=== PATIENT | male | born 1955 | race Caucasian/White ===

== ENCOUNTER 2016-09-17 16:02 | Emergency (ER) | payer OTHER ==
[~2016-09-17] VITALS: Ht 170.2 cm; Wt 81.8 kg
[~2016-09-17 16:02] MED LIST: AMLO-511 PO; ASPI81 PO; DOCU-119 PO; HYDR-309 PO; INSLAN SQ; LISI-661 PO; OMEP10 PO; TAMS0.4C32 PO
[2016-09-17] MEDS ORDERED: INSU100I26 SQ (16:09)
[2016-09-17] MEDS ORDERED: METF500T7 PO (16:09)
[2016-09-17] MEDS ORDERED: ATOR10TA84 PO (16:09)
[2016-09-17] MEDS ORDERED: CARV6 PO (16:09)
[2016-09-17 16:11] LABS: GLUCOSE COMMENT 1 Repeated; GLUCOSE,POINT OF CARE > 600 MG/DL (70-110)
[2016-09-17 17:22] LABS: GLUCOSE,POINT OF CARE 569 MG/DL (70-110)
[2016-09-17 18:02] LABS: APPEARANCE,URINE CLEAR (CLEAR); GLUCOSE, URINE (UA) >=1000 mg/dL (NEGATIVE); KETONES,URINE NEGATIVE (NEGATIVE); LEUKOCYTE ESTERASE ,URINE NEGATIVE (NEGATIVE); OCCULT BLOOD,URINE NEGATIVE (NEGATIVE); PROTEIN,URINE NEGATIVE (NEGATIVE)
[2016-09-17 18:03] LABS: BASOPHILS % (AUTO) 0.4 % (0.0-2.0); EOSINOPHILS % (AUTO) 3.7 % (1.0-6.0); HEMATOCRIT 47.9 % (41-53); HEMOGLOBIN 15.1 g/dL (13.5-17.5); LYMPHOCYTES # (AUTO) 3.2 K/uL (1.0-4.8); LYMPHOCYTES % (AUTO) 23.5 % (22.0-44.0); MEAN CORPUSCULAR HEMOGLOBIN 20.6 pg (26.0-34.0); MEAN CORPUSCULAR HGB CONC 31.6 G/dL (31.0-37.0); MEAN CORPUSCULAR VOLUME 65 fL (80-100); MONOCYTES % (AUTO) 7.8 % (2.0-9.0); NEUTROPHILS # (AUTO) 8.7 K/uL (1.8-7.7); NEUTROPHILS % (AUTO) 64.6 % (40.0-70.0); PLATELET COUNT (AUTO) 190 K/uL (150-450); RED BLOOD CELL COUNT(AUTO) 7.34 MIL/uL (4.50-5.90); RED CELL DISTRIBUTION WIDTH 15.2 % (11.5-14.5); WHITE BLOOD COUNT (AUTO) 13.4 K/uL (4.5-11.0)
[2016-09-17 18:03] LABS: ADD UA MICROSCOPIC YES
[2016-09-17 18:10] LABS: RBC,URINE None Seen /HPF (0-2); SQUAMOUS EPITHELIAL CELL,UR Rare /LPF (None Seen); WBC,URINE 0-2 /HPF (0-5)
[2016-09-17 18:26] LABS: ALANINE AMINOTRANSFERASE 85 U/L (12-78); ALBUMIN 3.6 g/dL (3.4-5.0); ANION GAP 4 mmol/L (8-16); ASPARTATE AMINOTRANSFERASE 34 U/L (15-37); BILIRUBIN,TOTAL 0.6 mg/dL (0.1-1.0); CALCIUM, TOTAL 9.2 mg/dL (8.8-10.5); CARBON DIOXIDE 30 mmol/L (22-29); CHLORIDE 92 mmol/L (98-107); CREATINE KINASE, TOTAL 68 U/L (39-308); CREATININE 1.21 mg/dL (0.60-1.30); GLOMERULAR FILTR. RATE CALC > 60 mL/min (>60); POTASSIUM 4.8 mmol/L (3.5-5.1); SODIUM SERUM 126 mmol/L (136-145); TOTAL PROTEIN, SERUM 7.3 g/dL (6.4-8.2); UREA NITROGEN, BLOOD 24 mg/dL (7-18)
[2016-09-17 18:29] LABS: B-TYPE NATRIURETIC PEPTIDE < 5 pg/mL (0-100)
[2016-09-17 18:30] LABS: RBC MORPHOLOGY COMMENT ABNORMAL RBC MORPH
[2016-09-17] MEDS ORDERED: METF500T4 PO (18:44)
[2016-09-17] MEDS ORDERED: INSULIN REGULAR, HUMAN 100 UNITS/ML IVP ONE (18:45)
[2016-09-17] MEDS ORDERED: SODIUM CHLORIDE 0.9% 1,000 ML IV ONE ×2 (18:45)
[2016-09-17 19:37] LABS: GLUCOSE,POINT OF CARE 383 MG/DL (70-110)
[2016-09-17 20:38] VITALS: BP 137/87
[2016-09-17 20:56] LABS: GLUCOSE,POINT OF CARE 310 MG/DL (70-110)
== END 2016-09-17 20:56 | disposition home or self-care (01) ==
LOC: EMS 16:04
DX: E11.65 Type 2 diabetes mellitus with hyperglycemia (principal); F17.210 Nicotine dependence, cigarettes, uncomplicated; Z79.4 Long term (current) use of insulin
CPT/HCPCS: 36415; 71010; 80053; 81001; 82550; 82962; 83880; 84484; 85025; 85610; 85730; 93005; 96360; 96361; 96374; 99285; J1815; J7030

== ENCOUNTER 2020-04-19 18:19 | Emergency (ER) | payer MEDICARE, OTHER ==
[~2020-04-19] VITALS: Ht 167.6 cm; Wt 68.2 kg
[~2020-04-19 18:19] MED LIST changes: +AMLO-257 PO; -AMLO-511 PO; +ASPI-728 PO; -ASPI81 PO; +ATOR10TA84 PO; +CARV6 PO; +INSU100I26 SQ; +METF-960 PO; +TAMS-13 PO; -TAMS0.4C32 PO
[2020-04-19 18:40] LABS: GLUCOSE,POINT OF CARE > 600 MG/DL (70-110)
[2020-04-19 20:19] LABS: GLUCOSE,POINT OF CARE > 600 MG/DL (70-110)
[2020-04-19] MEDS ORDERED: SODIUM CHLORIDE 0.9% 1,000 ML IV ONE (20:45)
[2020-04-19] MEDS ORDERED: INSULIN REGULAR, HUMAN 100 UNITS/ML IVP ONE ×2 (20:45→22:30)
[2020-04-19 21:23] LABS: COVID AG,FIA SOURCE NASOPHARYNGEAL
[2020-04-19 21:32] LABS: BASOPHILS % (AUTO) 0.9 % (0.0-2.0); EOSINOPHILS % (AUTO) 2.5 % (1.0-6.0); HEMATOCRIT 47.5 % (41-53); HEMOGLOBIN 14.6 g/dL (13.5-17.5); LYMPHOCYTES % (AUTO) 18.6 % (22.0-44.0); MEAN CORPUSCULAR HEMOGLOBIN 20.1 pg (26.0-34.0); MEAN CORPUSCULAR HGB CONC 30.7 G/dL (31.0-37.0); MEAN CORPUSCULAR VOLUME 66 fL (80-100); MONOCYTES % (AUTO) 9.6 % (2.0-9.0); NEUTROPHILS # (AUTO) 7.4 K/uL (1.8-7.7); NEUTROPHILS % (AUTO) 68.4 % (40.0-70.0); PLATELET COUNT (AUTO) 155 K/uL (150-450); RED BLOOD CELL COUNT(AUTO) 7.24 MIL/uL (4.50-5.90); RED CELL DISTRIBUTION WIDTH 16.2 % (11.5-14.5)
[2020-04-19 21:38] LABS: CALCIUM, TOTAL 9.4 mg/dL (8.8-10.5); CREATININE 1.22 mg/dL (0.60-1.30); POTASSIUM 5.1 mmol/L (3.5-5.1)
[2020-04-19 22:22] LABS: GLUCOSE,POINT OF CARE 488 MG/DL (70-110)
[2020-04-19 23:07] LABS: GLUCOSE,POINT OF CARE 393 MG/DL (70-110)
[2020-04-20 00:11] LABS: GLUCOSE,POINT OF CARE 295 MG/DL (70-110)
[2020-04-20] MEDS ORDERED: SODIUM CHLORIDE 0.9% 1,000 ML IV ONE (01:15)
[2020-04-20 01:28] LABS: GLUCOSE,POINT OF CARE 352 MG/DL (70-110)
[2020-04-20 01:41] VITALS: BP 132/88
== END 2020-04-20 01:58 | disposition home or self-care (01) ==
LOC: EMS 18:19
DX: E11.65 Type 2 diabetes mellitus with hyperglycemia (principal); Z20.822 Contact with and (suspected) exposure to COVID-19
CPT/HCPCS: 36415; 71045; 80048; 82009; 82962; 85025; 87426; 96361; 96374; 96376; 99284; J1815; J7030 ×2; U0003

== ENCOUNTER 2020-06-14 11:25 | Emergency (ER) | payer MEDICARE, OTHER ==
[~2020-06-14] VITALS: Ht 167.6 cm; Wt 66.8 kg
[~2020-06-14 11:25] MED LIST changes: +ASPI-1450 PO; -ASPI-728 PO; -LISI-661 PO; +LISI-893 PO
[2020-06-14] MEDS ORDERED: BACTDSB PO (11:33)
[2020-06-14 12:13] LABS: BASOPHILS % (AUTO) 0.8 % (0.0-2.0); EOSINOPHILS % (AUTO) 1.2 % (1.0-6.0); HEMATOCRIT 43.7 % (41-53); HEMOGLOBIN 13.8 g/dL (13.5-17.5); LYMPHOCYTES # (AUTO) 2.3 K/uL (1.0-4.8); LYMPHOCYTES % (AUTO) 21.1 % (22.0-44.0); MEAN CORPUSCULAR HEMOGLOBIN 20.4 pg (26.0-34.0); MEAN CORPUSCULAR HGB CONC 31.5 G/dL (31.0-37.0); MEAN CORPUSCULAR VOLUME 65 fL (80-100); NEUTROPHILS # (AUTO) 7.3 K/uL (1.8-7.7); NEUTROPHILS % (AUTO) 67.9 % (40.0-70.0); PLATELET COUNT (AUTO) 198 K/uL (150-450); RED BLOOD CELL COUNT(AUTO) 6.74 MIL/uL (4.50-5.90); RED CELL DISTRIBUTION WIDTH 16.7 % (11.5-14.5)
[2020-06-14] MEDS ORDERED: SODIUM CHLORIDE 0.9% 1,000 ML IV ONE (12:30)
[2020-06-14] MEDS ORDERED: INSULIN REGULAR, HUMAN 100 UNITS/ML IVP ONE ×2 (12:30→13:15)
[2020-06-14 12:33] LABS: ALBUMIN 3.7 g/dL (3.4-5.0); BILIRUBIN,TOTAL 0.5 mg/dL (0.1-1.0); CALCIUM, TOTAL 9.5 mg/dL (8.8-10.5); CREATININE 1.25 mg/dL (0.60-1.30); POTASSIUM 5.7 mmol/L (3.5-5.1); TOTAL PROTEIN, SERUM 7.9 g/dL (6.4-8.2)
[2020-06-14 12:54] LABS: GLUCOSE,POINT OF CARE 430 MG/DL (70-110)
[2020-06-14 13:33] LABS: GLUCOSE,POINT OF CARE 259 MG/DL (70-110)
[2020-06-14 13:34] VITALS: BP 132/80
== END 2020-06-14 13:37 | disposition home or self-care (01) ==
LOC: EMS 11:28
DX: E11.65 Type 2 diabetes mellitus with hyperglycemia (principal); F17.210 Nicotine dependence, cigarettes, uncomplicated; Z79.899 Other long term (current) drug therapy; Z79.84 Long term (current) use of oral hypoglycemic drugs
CPT/HCPCS: 36415; 80053; 82962; 83690; 84132; 84484; 85025; 93005; 96361; 96374; 99284; J1815; J7030; 82948

== ENCOUNTER 2020-06-20 04:45 | Inpatient (IN) | payer MEDICARE, OTHER ==
[~2020-06-20] VITALS: Ht 167.6 cm; Wt 68.0 kg
[~2020-06-20 04:45] MED LIST changes: +BACTDSB PO
[2020-06-20] MEDS ORDERED: RINGERS SOLUTION,LACTATED 1,000 ML IV ONE ×3 (05:01→20:37)
[2020-06-20 05:17] LABS: COVID AG,FIA SOURCE NASOPHARYNGEAL
[2020-06-20] MEDS ORDERED: CLOTRIMAZOLE 1% 15 GM CREAM TP ONE (05:30)
[2020-06-20] MEDS ORDERED: MORPHINE SULFATE 4 MG/ML SYRINGE IVP ONE (05:30)
[2020-06-20 05:49] LABS: EOSINOPHILS % (AUTO) 2.2 % (1.0-6.0); HEMATOCRIT 45.1 % (41-53); HEMOGLOBIN 14.1 g/dL (13.5-17.5); LYMPHOCYTES # (AUTO) 2.4 K/uL (1.0-4.8); LYMPHOCYTES % (AUTO) 22.6 % (22.0-44.0); MEAN CORPUSCULAR HEMOGLOBIN 20.5 pg (26.0-34.0); MEAN CORPUSCULAR HGB CONC 31.3 G/dL (31.0-37.0); MEAN CORPUSCULAR VOLUME 66 fL (80-100); MONOCYTES % (AUTO) 9.1 % (2.0-9.0); NEUTROPHILS # (AUTO) 6.8 K/uL (1.8-7.7); NEUTROPHILS % (AUTO) 65.1 % (40.0-70.0); PLATELET COUNT (AUTO) 217 K/uL (150-450); RED BLOOD CELL COUNT(AUTO) 6.89 MIL/uL (4.50-5.90); RED CELL DISTRIBUTION WIDTH 16.4 % (11.5-14.5)
[2020-06-20 06:08] LABS: ABG A-A DIFF O2 32.1 mmHg (10-20.0); ABG CARBOXYHEMOGLOBIN 4.3 % (0.0-1.5); ABG HCO3 25.8 mmol/L (22.0-26.0); ABG METHEMOGLOBIN 0.3 % (0.0-1.5); ABG OXYGEN CONTENT 17.5 mL/dL (15.0-23.0); ABG OXYGEN SATURATION 92.7 % (95.0-98.0); ABG OXYHEMOGLOBIN 88.4 % (94.0-100.0); ABG PCO2 43 mmHg (35-45); ABG PH 7.407 (7.35-7.450); ABG TOTAL HEMOGLOBIN 14.1 G/dL (12.0-18.0); PO2, ARTERIAL BG 65.7 mmHg (79.0-87.0); SOURCE, BLOOD GAS ARTERIAL; TEMPERATURE, FAHRENHEIT, BG 98.6 FAHREN (96.0-98.6)
[2020-06-20 06:09] LABS: SITE, BLOOD GAS LFT RADIAL
[2020-06-20] MEDS ORDERED: IOVERSOL 350 MG/ML 100 ML VIAL ONE (06:10)
[2020-06-20] MEDS ORDERED: SODIUM CHLORIDE 0.9% 100 ML ONE (06:10)
[2020-06-20 06:11] LABS: ACETONE,BLOOD NEGATIVE (NEGATIVE)
[2020-06-20 06:17] LABS: ALANINE AMINOTRANSFERASE 44 U/L (12-78); ALBUMIN 3.4 g/dL (3.4-5.0); ALKALINE PHOSPHATASE 109 U/L (46-116); ANION GAP 8 mmol/L (8-16); ASPARTATE AMINOTRANSFERASE 25 U/L (15-37); BILIRUBIN,TOTAL 0.4 mg/dL (0.1-1.0); CALCIUM, TOTAL 9.2 mg/dL (8.8-10.5); CARBON DIOXIDE 28 mmol/L (22-29); CHLORIDE 94 mmol/L (98-107); CREATININE 1.29 mg/dL (0.60-1.30); GLOMERULAR FILTR. RATE CALC 56 mL/min (>60); POTASSIUM 4.9 mmol/L (3.5-5.1); SODIUM SERUM 130 mmol/L (136-145); TOTAL PROTEIN, SERUM 7.8 g/dL (6.4-8.2); UREA NITROGEN, BLOOD 20 mg/dL (7-18)
[2020-06-20 06:24] LABS: GLUCOSE,RANDOM 656 mg/dL (70-110)
[2020-06-20 06:25] LABS: LACTIC ACID 2.1 mmol/L (0.4-2.0)
[2020-06-20 06:27] LABS: B-TYPE NATRIURETIC PEPTIDE 154 pg/mL (0-100)
[2020-06-20] MEDS ORDERED: INSULIN LISPRO 100 UNITS/ML SQ ONE ×2 (06:30→11:15)
[2020-06-20] MEDS ORDERED: SODIUM CHLORIDE 0.9% 1,000 ML IV ONE ×2 (06:30→11:00)
[2020-06-20] MEDS ORDERED: PIPERACILLIN/TAZO 3.375 GM/D5W 50 ML IV ONE (08:30)
[2020-06-20] MEDS ORDERED: ACETAMINOPHEN 325 MG TABLET PO PRN (08:45)
[2020-06-20] MEDS ORDERED: 0.9% SODIUM CHLORIDE 10 ML SYRINGE IVP PRN ×2 (08:45→09:15)
[2020-06-20] MEDS ORDERED: ONDANSETRON HCL 4 MG/2 ML VIAL IVP PRN ×2 (08:45→09:15)
[2020-06-20] MEDS ORDERED: HydrALAZINE HCL 20 MG/ML VIAL IVP PRN (09:00)
[2020-06-20] MEDS ORDERED: DEXTROSE 50%-WATER 25 GM/50 ML SYRINGE IVP PRN (09:00)
[2020-06-20] MEDS ORDERED: INSULIN GLARGINE,HUM.REC.ANLOG 100 UNITS/ML SQ SCH (09:00)
[2020-06-20 09:14] LABS: APPEARANCE,URINE CLOUDY (CLEAR); BILIRUBIN,URINE NEGATIVE (NEGATIVE); GLUCOSE, URINE (UA) >=1000 mg/dL (NEGATIVE); KETONES,URINE NEGATIVE (NEGATIVE); LEUKOCYTE ESTERASE ,URINE MODERATE (NEGATIVE); NITRATE,URINE NEGATIVE (NEGATIVE); OCCULT BLOOD,URINE MODERATE (NEGATIVE); PH,URINE 6.5 (5.0-8.0); PROTEIN,URINE NEGATIVE (NEGATIVE); UROBILINOGEN,URINE 0.2 mg/dL (<=1.0)
[2020-06-20] MEDS ORDERED: IPRATROPIUM BROMIDE 0.5 MG/2.5 ML NEB SOLUTION NEB PRN (09:15)
[2020-06-20] MEDS ORDERED: MAGNESIUM HYDROXIDE SUSPENSION 30 ML UDCUP PO PRN (09:15)
[2020-06-20] MEDS: PANTOPRAZOLE SODIUM 40 MG DR TABLET PO SCH (09:15)
[2020-06-20] MEDS ORDERED: BISACODYL 10 MG RECTAL RECTAL SUPPOSITORY PR PRN (09:15)
[2020-06-20] MEDS ORDERED: ALBUTEROL SULFATE 2.5 MG/0.5 ML NEB SOLUTION NEB PRN (09:15)
[2020-06-20 09:23] LABS: RBC,URINE 0-2 /HPF (0-2); WBC,URINE 26-50 /HPF (0-5)
[2020-06-20 09:24] LABS: BACTERIA,URINE Moderate /HPF (None Seen)
[2020-06-20 09:28] LABS: GLUCOSE,POINT OF CARE 423 MG/DL (70-110)
[2020-06-20 09:48] LABS: AMPHET/METH SCREEN,URINE POSITIVE (NEGATIVE); BARBITURATE SCREEN, URINE NEGATIVE (NEGATIVE); BENZODIAZEPINES SCREEN,URINE NEGATIVE (NEGATIVE); CANNABINOID SCREEN,URINE NEGATIVE (NEGATIVE); COCAINE SCREEN,URINE NEGATIVE (NEGATIVE); METHADONE SCREEN, URINE NEGATIVE (NEGATIVE); OPIATE SCREEN,URINE POSITIVE (NEGATIVE)
[2020-06-20 09:50] LABS: PHENCYCLIDINE SCREEN,URINE NEGATIVE (NEGATIVE)
[2020-06-20] MEDS: SODIUM CHLORIDE 0.9% 1,000 ML IV SCH ×2 (10:00→23:43)
[2020-06-20] MEDS ORDERED: SODIUM CHLORIDE 0.9% 2,200 ML IV ONE (11:15)
[2020-06-20] MEDS ORDERED: ACETAMINOPHEN 500 MG TABLET PO ONE (11:15)
[2020-06-20 11:54] LABS: GLUCOSE,POINT OF CARE 360 MG/DL (70-110)
[2020-06-20 13:39] VITALS: BP 148/83
[2020-06-20 15:12] VITALS: BP 107/56
[2020-06-20] MEDS: PIPERACILLIN/TAZO 3.375 GM/D5W 50 ML IV SCH ×2 (17:55→23:42)
[2020-06-20] MEDS ORDERED: IOHEXOL 240 MG/ML 20 ML VIAL ONE (20:10)
[2020-06-20] MEDS ORDERED: LIDOCAINE 2% 30 ML JELLY ONE (20:10)
[2020-06-20] MEDS ORDERED: SODIUM CL IRRIG SOLN BAG 0 ML IRRIG ONE (20:10)
[2020-06-20 20:19] VITALS: BP 100/65
[2020-06-20] MEDS ORDERED: SODIUM CL IRRIG SOLN BAG 3,000 ML IRRIG ONE (20:37)
[2020-06-20] MEDS: DOCUSATE SODIUM 100 MG CAPSULE PO SCH (21:00)
[2020-06-20] MEDS: TAMSULOSIN HCL 0.4 MG CAPSULE PO SCH (21:00)
[2020-06-20] MEDS ORDERED: FentaNYL CITRATE PF 100 MCG/2 ML VIAL IVP PRN (21:15)
[2020-06-20] MEDS ORDERED: SUGAMMADEX SODIUM 200 MG/2 ML VIAL IVP ONE (21:20)
[2020-06-20 21:42] LABS: GLUCOMETER DEV NAME(LOC) 5N.1B; GLUCOSE,POINT OF CARE 121 MG/DL (70-110)
[2020-06-20 21:42] LABS: GLUCOMETER DEV NAME(LOC) 5N.1B; GLUCOSE,POINT OF CARE 228 MG/DL (70-110)
[2020-06-21 00:15] VITALS: BP 109/50
[2020-06-21 03:08] LABS: LACTIC ACID 2.4 mmol/L (0.4-2.0)
[2020-06-21] MEDS ORDERED: METOCLOPRAMIDE HCL 5 MG/ML 2 ML VIAL IVP ONE (04:32)
[2020-06-21] MEDS ORDERED: LIDOCAINE/PF 2% 5 ML SYRINGE IVP ONE (04:32)
[2020-06-21] MEDS ORDERED: FentaNYL CITRATE PF 100 MCG/2 ML VIAL IVP ONE (04:32)
[2020-06-21] MEDS ORDERED: PROPOFOL 1% 20 ML VIAL IVP ONE (04:32)
[2020-06-21] MEDS ORDERED: ROCURONIUM BROMIDE 10 MG/ML 5 ML VIAL IVP ONE (04:32)
[2020-06-21] MEDS ORDERED: ONDANSETRON HCL 4 MG/2 ML VIAL IVP ONE (04:32)
[2020-06-21 05:17] VITALS: BP 103/63
[2020-06-21] MEDS: PIPERACILLIN/TAZO 3.375 GM/D5W 50 ML IV SCH ×4 (05:51→22:28)
[2020-06-21 06:24] LABS: BASOPHILS % (AUTO) 0.2 % (0.0-2.0); EOSINOPHILS % (AUTO) 0 % (1.0-6.0); HEMATOCRIT 35.8 % (41-53); HEMOGLOBIN 11.3 g/dL (13.5-17.5); LYMPHOCYTES # (AUTO) 1.6 K/uL (1.0-4.8); LYMPHOCYTES % (AUTO) 5.6 % (22.0-44.0); MEAN CORPUSCULAR HEMOGLOBIN 20.3 pg (26.0-34.0); MEAN CORPUSCULAR HGB CONC 31.6 G/dL (31.0-37.0); MEAN CORPUSCULAR VOLUME 64 fL (80-100); MONOCYTES # (AUTO) 1.8 K/uL (0.1-1.0); MONOCYTES % (AUTO) 6.3 % (2.0-9.0); NEUTROPHILS # (AUTO) 24.7 K/uL (1.8-7.7); RED BLOOD CELL COUNT(AUTO) 5.57 MIL/uL (4.50-5.90); RED CELL DISTRIBUTION WIDTH 16.2 % (11.5-14.5)
[2020-06-21 06:57] LABS: NEUTROPHILS % (AUTO) 87.9 % (40.0-70.0); PLATELET COUNT (AUTO) 198 K/uL (150-450)
[2020-06-21 07:01] LABS: ALBUMIN 2.1 g/dL (3.4-5.0); BILIRUBIN,TOTAL 0.5 mg/dL (0.1-1.0); CREATININE 1.62 mg/dL (0.60-1.30); FREE T4 (FREE THYROXINE) 1.1 ng/dL (0.76-1.46); POTASSIUM 4.2 mmol/L (3.5-5.1); THYROID STIMULATING HORMONE 4.98 uIU/mL (0.36-3.74); TOTAL PROTEIN, SERUM 5.7 g/dL (6.4-8.2)
[2020-06-21 07:20] LABS: GLUCOMETER DEV NAME(LOC) 5N.1B; GLUCOSE,POINT OF CARE 229 MG/DL (70-110)
[2020-06-21 07:20] LABS: GLUCOMETER DEV NAME(LOC) 5N.1B; GLUCOSE,POINT OF CARE 251 MG/DL (70-110)
[2020-06-21 07:21] LABS: % IRON SATURATION 5.5 % (30-44)
[2020-06-21] MEDS: DOCUSATE SODIUM 100 MG CAPSULE PO SCH ×2 (07:56→20:33)
[2020-06-21] MEDS: PANTOPRAZOLE SODIUM 40 MG DR TABLET PO SCH (07:56)
[2020-06-21] MEDS: ASPIRIN 81 MG CHEWABLE TABLET PO SCH (07:56)
[2020-06-21] MEDS: INSULIN GLARGINE,HUM.REC.ANLOG 100 UNITS/ML SQ SCH (08:05)
[2020-06-21 08:07] VITALS: BP 92/63
[2020-06-21] MEDS: INSULIN LISPRO 100 UNITS/ML SQ PRN ×4 (08:08→20:38)
[2020-06-21] MEDS: OXYGEN THERAPY IH SCH ×2 (08:16→20:33)
[2020-06-21] MEDS: CARVEDILOL 6.25 MG TABLET PO SCH (09:00)
[2020-06-21] MEDS: ATORVASTATIN CALCIUM 10 MG TABLET PO SCH (09:00)
[2020-06-21] MEDS: LISINOPRIL 10 MG TABLET PO SCH (09:00)
[2020-06-21] MEDS: AmLODIPine BESYLATE 5 MG TABLET PO SCH (09:00)
[2020-06-21] MEDS ORDERED: SODIUM CHLORIDE 0.9% 250 ML IV ONE (09:45)
[2020-06-21] MEDS ORDERED: SODIUM CHLORIDE 0.9% 500 ML IV ONE (10:30)
[2020-06-21] MEDS: SODIUM CHLORIDE 0.9% 1,000 ML IV SCH ×2 (10:42→16:25)
[2020-06-21 11:29] VITALS: BP 112/64
[2020-06-21 11:52] LABS: GLUCOMETER DEV NAME(LOC) 5N.1B; GLUCOSE,POINT OF CARE 229 MG/DL (70-110)
[2020-06-21 11:52] LABS: GLUCOMETER DEV NAME(LOC) 5N.1B; GLUCOSE,POINT OF CARE 248 MG/DL (70-110)
[2020-06-21] MEDS: LEVOFLOXACIN 750 MG/D5% WATER 150 ML IV SCH (13:08)
[2020-06-21 15:55] LABS: LACTIC ACID 2.5 mmol/L (0.4-2.0)
[2020-06-21 19:45] VITALS: BP 136/89
[2020-06-21] MEDS: MELATONIN 3 MG TABLET PO SCH (20:31)
[2020-06-21] MEDS: TAMSULOSIN HCL 0.4 MG CAPSULE PO SCH (20:33)
[2020-06-21 20:40] LABS: GLUCOMETER DEV NAME(LOC) 5N.3; GLUCOSE,POINT OF CARE 211 MG/DL (70-110)
[2020-06-21 23:15] VITALS: BP 130/80
[2020-06-22] MEDS: INSULIN LISPRO 100 UNITS/ML SQ PRN ×4 (00:21→20:46)
[2020-06-22] MEDS: PIPERACILLIN/TAZO 3.375 GM/D5W 50 ML IV SCH ×4 (04:40→23:12)
[2020-06-22] MEDS ORDERED: SODIUM CHLORIDE 0.9% 100 ML ONE (04:43)
[2020-06-22 04:47] VITALS: BP 119/81
[2020-06-22 05:02] LABS: GLUCOMETER DEV NAME(LOC) 5N.1B; GLUCOSE,POINT OF CARE 125 MG/DL (70-110)
[2020-06-22 05:02] LABS: GLUCOMETER DEV NAME(LOC) 5N.1B; GLUCOSE,POINT OF CARE 201 MG/DL (70-110)
[2020-06-22 05:02] LABS: GLUCOMETER DEV NAME(LOC) 5N.1B; GLUCOSE,POINT OF CARE 239 MG/DL (70-110)
[2020-06-22] MEDS: HYDROCODONE/ACETAMINOPHEN 5-325 MG TABLET PO PRN ×2 (06:34→18:32)
[2020-06-22 07:45] VITALS: BP 105/71
[2020-06-22] MEDS: OXYGEN THERAPY IH SCH ×2 (08:00→20:47)
[2020-06-22] MEDS: ATORVASTATIN CALCIUM 10 MG TABLET PO SCH (08:15)
[2020-06-22] MEDS: DOCUSATE SODIUM 100 MG CAPSULE PO SCH ×2 (08:15→20:44)
[2020-06-22] MEDS: ASPIRIN 81 MG CHEWABLE TABLET PO SCH (08:15)
[2020-06-22] MEDS: PANTOPRAZOLE SODIUM 40 MG DR TABLET PO SCH (08:16)
[2020-06-22] MEDS: INSULIN GLARGINE,HUM.REC.ANLOG 100 UNITS/ML SQ SCH (08:20)
[2020-06-22] MEDS: AmLODIPine BESYLATE 5 MG TABLET PO SCH (08:22)
[2020-06-22] MEDS: CARVEDILOL 6.25 MG TABLET PO SCH (08:23)
[2020-06-22] MEDS: LISINOPRIL 10 MG TABLET PO SCH (09:00)
[2020-06-22 11:30] VITALS: BP 103/73
[2020-06-22] MEDS ORDERED: SODIUM CHLORIDE 0.9% 250 ML IV ONE (13:10)
[2020-06-22 15:45] VITALS: BP 120/84
[2020-06-22 19:28] VITALS: BP 123/85
[2020-06-22] MEDS: MELATONIN 3 MG TABLET PO SCH (20:44)
[2020-06-22] MEDS: ACETAMINOPHEN 325 MG TABLET PO PRN (20:44)
[2020-06-22] MEDS: TAMSULOSIN HCL 0.4 MG CAPSULE PO SCH (20:44)
[2020-06-22 23:49] VITALS: BP 129/79
[2020-06-23] MEDS: HYDROCODONE/ACETAMINOPHEN 5-325 MG TABLET PO PRN ×4 (02:27→21:09)
[2020-06-23 04:44] VITALS: BP 127/76
[2020-06-23] MEDS: PIPERACILLIN/TAZO 3.375 GM/D5W 50 ML IV SCH ×4 (06:06→23:13)
[2020-06-23] MEDS: ACETAMINOPHEN 325 MG TABLET PO PRN (06:07)
[2020-06-23 06:49] LABS: ALBUMIN 1.8 g/dL (3.4-5.0); BILIRUBIN,TOTAL 0.7 mg/dL (0.1-1.0); CALCIUM, TOTAL 7.7 mg/dL (8.8-10.5); CREATININE 1.32 mg/dL (0.60-1.30); POTASSIUM 3.7 mmol/L (3.5-5.1); TOTAL PROTEIN, SERUM 5.6 g/dL (6.4-8.2)
[2020-06-23 07:11] LABS: HEMATOCRIT 35.2 % (41-53); HEMOGLOBIN 10.9 g/dL (13.5-17.5); MEAN CORPUSCULAR HEMOGLOBIN 19.6 pg (26.0-34.0); MEAN CORPUSCULAR HGB CONC 30.9 G/dL (31.0-37.0); MEAN CORPUSCULAR VOLUME 37 fL (80-100); PLATELET COUNT (AUTO) 109 K/uL (150-450); RED BLOOD CELL COUNT(AUTO) 5.54 MIL/uL (4.50-5.90); RED CELL DISTRIBUTION WIDTH 16.5 % (11.5-14.5)
[2020-06-23 07:12] LABS: BASOPHILS % (AUTO) 0.5 % (0.0-2.0); EOSINOPHILS % (AUTO) 1.3 % (1.0-6.0); LYMPHOCYTES # (AUTO) 1.5 K/uL (1.0-4.8); LYMPHOCYTES % (AUTO) 8.5 % (22.0-44.0); MONOCYTES # (AUTO) 1.3 K/uL (0.1-1.0); MONOCYTES % (AUTO) 7.6 % (2.0-9.0); NEUTROPHILS # (AUTO) 14.4 K/uL (1.8-7.7); NEUTROPHILS % (AUTO) 82.1 % (40.0-70.0)
[2020-06-23 07:35] VITALS: BP 131/76
[2020-06-23] MEDS: INSULIN GLARGINE,HUM.REC.ANLOG 100 UNITS/ML SQ SCH (08:46)
[2020-06-23] MEDS: DOCUSATE SODIUM 100 MG CAPSULE PO SCH ×2 (08:48→21:10)
[2020-06-23] MEDS: ASPIRIN 81 MG CHEWABLE TABLET PO SCH (08:48)
[2020-06-23] MEDS: LISINOPRIL 10 MG TABLET PO SCH (08:49)
[2020-06-23] MEDS: PANTOPRAZOLE SODIUM 40 MG DR TABLET PO SCH (08:49)
[2020-06-23] MEDS: CARVEDILOL 6.25 MG TABLET PO SCH (08:49)
[2020-06-23] MEDS: ATORVASTATIN CALCIUM 10 MG TABLET PO SCH (08:49)
[2020-06-23] MEDS: AmLODIPine BESYLATE 5 MG TABLET PO SCH (08:49)
[2020-06-23] MEDS: OXYGEN THERAPY IH SCH ×2 (08:51→21:10)
[2020-06-23] MEDS: LEVOFLOXACIN 750 MG/D5% WATER 150 ML IV SCH (11:42)
[2020-06-23] MEDS: INSULIN LISPRO 100 UNITS/ML SQ PRN ×3 (11:43→21:12)
[2020-06-23 11:47] VITALS: BP 123/59
[2020-06-23] MEDS ORDERED: SODIUM CHLORIDE 0.9% 250 ML IV ONE (14:29)
[2020-06-23 15:31] VITALS: BP 91/58
[2020-06-23 19:46] VITALS: BP 103/64
[2020-06-23 20:40] LABS: GLUCOMETER DEV NAME(LOC) 5N.3; GLUCOSE,POINT OF CARE 208 MG/DL (70-110)
[2020-06-23 20:40] LABS: GLUCOMETER DEV NAME(LOC) 5N.3; GLUCOSE,POINT OF CARE 172 MG/DL (70-110)
[2020-06-23] MEDS: TAMSULOSIN HCL 0.4 MG CAPSULE PO SCH (21:09)
[2020-06-23] MEDS: MELATONIN 3 MG TABLET PO SCH (21:10)
[2020-06-23 23:48] VITALS: BP 98/54
[2020-06-24 03:55] VITALS: BP 109/72
[2020-06-24] MEDS: HYDROCODONE/ACETAMINOPHEN 5-325 MG TABLET PO PRN ×2 (05:14→12:18)
[2020-06-24] MEDS: PIPERACILLIN/TAZO 3.375 GM/D5W 50 ML IV SCH ×2 (05:14→11:32)
[2020-06-24 05:47] LABS: BASOPHILS % (AUTO) 0.5 % (0.0-2.0); EOSINOPHILS % (AUTO) 1.8 % (1.0-6.0); HEMATOCRIT 34.6 % (41-53); HEMOGLOBIN 10.9 g/dL (13.5-17.5); LYMPHOCYTES # (AUTO) 1.2 K/uL (1.0-4.8); LYMPHOCYTES % (AUTO) 7.9 % (22.0-44.0); MEAN CORPUSCULAR HEMOGLOBIN 19.9 pg (26.0-34.0); MEAN CORPUSCULAR HGB CONC 31.4 G/dL (31.0-37.0); MEAN CORPUSCULAR VOLUME 63 fL (80-100); MONOCYTES # (AUTO) 1.8 K/uL (0.1-1.0); MONOCYTES % (AUTO) 12.1 % (2.0-9.0); NEUTROPHILS # (AUTO) 11.7 K/uL (1.8-7.7); NEUTROPHILS % (AUTO) 77.7 % (40.0-70.0); PLATELET COUNT (AUTO) 121 K/uL (150-450); RED BLOOD CELL COUNT(AUTO) 5.46 MIL/uL (4.50-5.90); RED CELL DISTRIBUTION WIDTH 16.3 % (11.5-14.5)
[2020-06-24 05:58] LABS: CREATININE 1.34 mg/dL (0.60-1.30); POTASSIUM 4.1 mmol/L (3.5-5.1)
[2020-06-24] MEDS: INSULIN LISPRO 100 UNITS/ML SQ PRN ×3 (06:07→16:19)
[2020-06-24 07:27] LABS: GLUCOMETER DEV NAME(LOC) 5S.2B; GLUCOSE,POINT OF CARE 260 MG/DL (70-110)
[2020-06-24 07:27] LABS: GLUCOMETER DEV NAME(LOC) 5S.2B; GLUCOSE,POINT OF CARE 193 MG/DL (70-110)
[2020-06-24 07:56] LABS: GLUCOMETER DEV NAME(LOC) 5N.1B; GLUCOSE,POINT OF CARE 104 MG/DL (70-110)
[2020-06-24 07:56] LABS: GLUCOMETER DEV NAME(LOC) 5N.1B; GLUCOSE,POINT OF CARE 166 MG/DL (70-110)
[2020-06-24 07:56] LABS: GLUCOMETER DEV NAME(LOC) 5N.1B; GLUCOSE,POINT OF CARE 160 MG/DL (70-110)
[2020-06-24 07:56] LABS: GLUCOMETER DEV NAME(LOC) 5N.1B; GLUCOSE,POINT OF CARE 129 MG/DL (70-110)
[2020-06-24] MEDS: OXYGEN THERAPY IH SCH (08:01)
[2020-06-24] MEDS: ASPIRIN 81 MG CHEWABLE TABLET PO SCH (08:02)
[2020-06-24] MEDS: DOCUSATE SODIUM 100 MG CAPSULE PO SCH (08:02)
[2020-06-24] MEDS: PANTOPRAZOLE SODIUM 40 MG DR TABLET PO SCH (08:03)
[2020-06-24] MEDS: INSULIN GLARGINE,HUM.REC.ANLOG 100 UNITS/ML SQ SCH (08:08)
[2020-06-24 08:23] VITALS: BP 104/63
[2020-06-24] MEDS: CARVEDILOL 6.25 MG TABLET PO SCH (08:38)
[2020-06-24] MEDS: LISINOPRIL 10 MG TABLET PO SCH (08:39)
[2020-06-24] MEDS: AmLODIPine BESYLATE 5 MG TABLET PO SCH (08:39)
[2020-06-24] MEDS: ATORVASTATIN CALCIUM 10 MG TABLET PO SCH (08:41)
[2020-06-24] MEDS ORDERED: LEVOFLOXACIN 750 MG TABLET PO SCH (09:00)
[2020-06-24 11:40] LABS: GLUCOMETER DEV NAME(LOC) 5S.2B; GLUCOSE,POINT OF CARE 163 MG/DL (70-110)
[2020-06-24 11:53] VITALS: BP 130/84
[2020-06-24 12:29] LABS: GLUCOMETER DEV NAME(LOC) 5S.2B; GLUCOSE,POINT OF CARE 208 MG/DL (70-110)
[2020-06-24] MEDS ORDERED: LEVO750T68 PO ×2 (14:42→14:44)
[2020-06-24 16:57] LABS: GLUCOMETER DEV NAME(LOC) 5S.1; GLUCOSE,POINT OF CARE 236 MG/DL (70-110)
[2020-06-25] MEDS ORDERED: PHEN-846 PO (12:06)
[2020-06-25] MEDS ORDERED: TRAM50TA4 PO (12:06)
== END 2020-06-24 16:30 | disposition home or self-care (01) | DRG 854 ==
LOC: EMS 04:45 → 6N 10:27 → 5N 10:28 → 5S 06-23 04:18
PROVIDERS: ADMIT Internal Medicine; ATTEND Internal Medicine
PROC: 0T778DZ Dilation of Left Ureter with Intraluminal Device, Via Natural or Artificial Opening Endoscopic (ICD-10-PCS; 2020-06-20)
PROC: BT1F1ZZ Fluoroscopy of Left Kidney, Ureter and Bladder using Low Osmolar Contrast (ICD-10-PCS; principal; 2020-06-20 20:30)
DX: A41.50 Gram-negative sepsis, unspecified (principal); N13.6 Pyonephrosis; N17.9 Acute kidney failure, unspecified; E10.65 Type 1 diabetes mellitus with hyperglycemia; F15.10 Other stimulant abuse, uncomplicated; Z91.19 Patient's noncompliance with other medical treatment and regimen; Z20.822 Contact with and (suspected) exposure to COVID-19; E87.5 Hyperkalemia; F17.210 Nicotine dependence, cigarettes, uncomplicated; I13.10 Hypertensive heart and chronic kidney disease without heart failure, with stage 1 through stage 4 chronic kidney disease, or unspecified chronic kidney disease; I25.10 Atherosclerotic heart disease of native coronary artery without angina pectoris; N18.9 Chronic kidney disease, unspecified; N40.0 Benign prostatic hyperplasia without lower urinary tract symptoms; N47.1 Phimosis; N48.1 Balanitis; R33.8 Other retention of urine; E10.22 Type 1 diabetes mellitus with diabetic chronic kidney disease; Z83.3 Family history of diabetes mellitus; Z91.14 Patient's other noncompliance with medication regimen; Z79.4 Long term (current) use of insulin; Z79.899 Other long term (current) drug therapy; Z79.82 Long term (current) use of aspirin
CPT/HCPCS: 74177; 82270; 82728; 82805; 83540; 83550; 83605; 84145; 84439; 84443; 87040; 87086; 87205; 87426; 93005; 93306; 99285; A9575; J1815; J1956; J2270; J2405; J2543; J2704; J2765; J3010; J3490; J7030; J7050; J7120; Q9966; 36415-L1; 36415-TC; 71045-TC; 80061-TC; U0003

== ENCOUNTER 2021-01-02 05:26 | Emergency (ER) | payer OTHER ==
[~2021-01-02] VITALS: Ht 167.6 cm; Wt 126.0 kg
[~2021-01-02 05:26] MED LIST changes: -HYDR-309 PO; +LEVO750T68 PO; +PHEN-846 PO; +TRAM50TA4 PO
[2021-01-02 06:26] LABS: EOSINOPHILS % (AUTO) 2.4 % (1.0-6.0); HEMATOCRIT 47.9 % (41-53); LYMPHOCYTES # (AUTO) 2.8 K/uL (1.0-4.8); LYMPHOCYTES % (AUTO) 18.8 % (22.0-44.0); MEAN CORPUSCULAR HGB CONC 31.3 G/dL (31.0-37.0); MEAN CORPUSCULAR VOLUME 64 fL (80-100); MONOCYTES # (AUTO) 1.5 K/uL (0.1-1.0); MONOCYTES % (AUTO) 9.6 % (2.0-9.0); NEUTROPHILS # (AUTO) 10.4 K/uL (1.8-7.7); NEUTROPHILS % (AUTO) 68.2 % (40.0-70.0); PLATELET COUNT (AUTO) 311 K/uL (150-450); RED BLOOD CELL COUNT(AUTO) 7.47 MIL/uL (4.50-5.90); RED CELL DISTRIBUTION WIDTH 15.8 % (11.5-14.5)
[2021-01-02] MEDS ORDERED: KETOROLAC TROMETHAMINE 30 MG/ML VIAL IVP ONE (06:30)
[2021-01-02] MEDS ORDERED: ACETAMINOPHEN 500 MG TABLET PO ONE (06:30)
[2021-01-02 06:43] LABS: ALBUMIN 3.4 g/dL (3.4-5.0); BILIRUBIN,TOTAL 0.6 mg/dL (0.1-1.0); CALCIUM, TOTAL 9.7 mg/dL (8.8-10.5); CREATININE 1.31 mg/dL (0.60-1.30); MAGNESIUM 2.3 mg/dL (1.80-2.40); PHOSPHORUS 3.5 mg/dL (2.5-4.9); TOTAL PROTEIN, SERUM 8.7 g/dL (6.4-8.2)
[2021-01-02] MEDS ORDERED: INSULIN REGULAR, HUMAN 100 UNITS/ML IVP ONE ×2 (07:00→08:45)
[2021-01-02 07:25] LABS: GLUCOMETER DEV NAME(LOC) ERT.5; GLUCOSE,POINT OF CARE 456 MG/DL (70-110)
[2021-01-02 08:00] VITALS: BP 123/86
[2021-01-02 08:40] LABS: GLUCOSE,POINT OF CARE 446 MG/DL (70-110)
[2021-01-02] MEDS ORDERED: SODIUM CHLORIDE 0.9% 1,000 ML IV ONE (08:45)
[2021-01-02 09:49] LABS: GLUCOMETER DEV NAME(LOC) ERT.5; GLUCOSE,POINT OF CARE 383 MG/DL (70-110)
== END 2021-01-02 10:01 | disposition home or self-care (01) ==
LOC: EMS 05:27
DX: R07.89 Other chest pain (principal); E11.65 Type 2 diabetes mellitus with hyperglycemia; F17.210 Nicotine dependence, cigarettes, uncomplicated; Z79.84 Long term (current) use of oral hypoglycemic drugs; Z79.899 Other long term (current) drug therapy
CPT/HCPCS: 36415; 71045; 80053; 82962; 83735; 84100; 84484; 85025; 93005; 96361; 96374; 96375; 96376; 99285; J1815; J1885; J7030

== ENCOUNTER 2021-03-25 17:24 | Emergency (ER) | payer OTHER ==
[~2021-03-25] VITALS: Ht 167.6 cm; Wt 59.0 kg
[~2021-03-25 17:24] MED LIST changes: +METF-1211 PO; -METF-960 PO
[2021-03-25 17:29] VITALS: BP 146/76
[2021-03-25] MEDS ORDERED: MAGNESIUM CITRATE 300 ML ORAL SOLUTION PO ONE (20:15)
== END 2021-03-25 21:18 | disposition home or self-care (01) ==
LOC: EMS 17:25
DX: K59.00 Constipation, unspecified (principal); E11.9 Type 2 diabetes mellitus without complications; I10 Essential (primary) hypertension; F17.210 Nicotine dependence, cigarettes, uncomplicated; Z79.4 Long term (current) use of insulin; Z79.899 Other long term (current) drug therapy; Z79.82 Long term (current) use of aspirin
CPT/HCPCS: 99282; Z7502

== ENCOUNTER 2021-10-08 21:59 | Emergency (ER) | payer OTHER ==
[~2021-10-08] VITALS: Ht 167.6 cm; Wt 59.1 kg
[2021-10-09] MEDS ORDERED: METO50 PO ×2 (01:31→02:59)
[2021-10-09 01:47] LABS: COVID AG,FIA SOURCE NASOPHARYNGEAL
[2021-10-09 01:51] LABS: GLUCOSE,POINT OF CARE 181 MG/DL (70-110)
[2021-10-09 01:53] LABS: BASOPHILS % (AUTO) 0.5 % (0.0-2.0); EOSINOPHILS % (AUTO) 3.1 % (1.0-6.0); HEMATOCRIT 39.3 % (41-53); HEMOGLOBIN 12.7 g/dL (13.5-17.5); LYMPHOCYTES # (AUTO) 2.8 K/uL (1.0-4.8); LYMPHOCYTES % (AUTO) 15.3 % (22.0-44.0); MEAN CORPUSCULAR HEMOGLOBIN 20.4 pg (26.0-34.0); MEAN CORPUSCULAR HGB CONC 32.2 G/dL (31.0-37.0); MEAN CORPUSCULAR VOLUME 63 fL (80-100); MONOCYTES # (AUTO) 1.3 K/uL (0.1-1.0); NEUTROPHILS # (AUTO) 13.4 K/uL (1.8-7.7); NEUTROPHILS % (AUTO) 74.1 % (40.0-70.0); PLATELET COUNT (AUTO) 221 K/uL (150-450); RED BLOOD CELL COUNT(AUTO) 6.22 MIL/uL (4.50-5.90); RED CELL DISTRIBUTION WIDTH 16.3 % (11.5-14.5)
[2021-10-09 02:06] LABS: ANION GAP 2 mmol/L (8-16); CALCIUM, TOTAL 8.7 mg/dL (8.8-10.5); CARBON DIOXIDE 30 mmol/L (22-29); CHLORIDE 104 mmol/L (98-107); CREATININE 0.72 mg/dL (0.60-1.30); GLOMERULAR FILTR. RATE CALC > 60 mL/min (>60); GLUCOSE,RANDOM 187 mg/dL (70-110); POTASSIUM 4.7 mmol/L (3.5-5.1); SODIUM SERUM 136 mmol/L (136-145); UREA NITROGEN, BLOOD 20 mg/dL (7-18)
[2021-10-09 02:09] LABS: ALANINE AMINOTRANSFERASE 24 U/L (12-78); ALBUMIN 2.5 g/dL (3.4-5.0); ALKALINE PHOSPHATASE 77 U/L (46-116); ASPARTATE AMINOTRANSFERASE 17 U/L (15-37); BILIRUBIN,TOTAL 0.3 mg/dL (0.1-1.0); TOTAL PROTEIN, SERUM 5.9 g/dL (6.4-8.2)
[2021-10-09] MEDS ORDERED: AMLO-257 PO (02:59)
[2021-10-09] MEDS ORDERED: ASPI-1450 PO (02:59)
[2021-10-09] MEDS ORDERED: DOCU-119 PO (02:59)
[2021-10-09] MEDS ORDERED: ATOR10TA84 PO (02:59)
[2021-10-09] MEDS ORDERED: INSLAN SQ (02:59)
[2021-10-09] MEDS ORDERED: TAMS-13 PO (02:59)
[2021-10-09] MEDS ORDERED: OMEP10 PO (02:59)
[2021-10-09] MEDS ORDERED: METF-1211 PO (02:59)
[2021-10-09 09:17] VITALS: BP 145/89
== END 2021-10-09 13:53 | disposition home or self-care (01) ==
LOC: EMS 10-09 00:05
DX: R53.1 Weakness (principal); E11.9 Type 2 diabetes mellitus without complications; I10 Essential (primary) hypertension; F17.210 Nicotine dependence, cigarettes, uncomplicated; Z98.890 Other specified postprocedural states; Z20.822 Contact with and (suspected) exposure to COVID-19; X00.1XXA Exposure to smoke in uncontrolled fire in building or structure, initial encounter; Y93.89 Activity, other specified; Y92.039 Unspecified place in apartment as the place of occurrence of the external cause; Y99.8 Other external cause status
CPT/HCPCS: 71045; 80053; 82962; 84484; 85025; 93005; 99285; 36415-L1; 36415-TC